=== PATIENT | female | born 1990 | race Caucasian/White ===

== ENCOUNTER 2020-03-07 12:04 | Emergency (ER) | payer OTHER ==
[2020-03-07 12:11] VITALS: BP 159/104; PULSE 72; TEMP 98.9; BMI 32.1
--- NOTE | 2020-03-07 12:11 | PDOC ---
Rapid Medical Evaluation Chief Complaint: Blood Pressure Problem Time Seen by Provider: 03/07/20 12:09 Medical Evaluation: 03/07/20 12:09 I have performed a brief in person evaluation of this patient. CC: "My blood Pressure is high." +Chest tightness x1 day PE: No focal findings Orders: cardiac w/u Patient will proceed to ED for further evaluation. Discharge Disposition - Diagnosis Chest tightness - Referrals - Patient Instructions - Post Discharge Activity
[2020-03-07 12:55] LABS: BASO % 0.5 % (0-2.0); EOS % 2.6 % (0-4.5); HEMATOCRIT 40.4 % (32.4-45.2); HEMOGLOBIN 13.7 GM/dL (10.7-15.3); MCH 29.5 pg (25.7-33.7); MCHC 33.9 g/dl (32.0-36.0); MEAN CELL VOLUME 87.1 fl (80-96); MEAN PLT VOLUME 8.4 fl (7.5-11.1); MONO % 6.5 % (3.8-10.2); NEUT % 64.4 % (42.8-82.8); PLATELET COUNT 277 K/MM3 (134-434); RBC 4.64 M/mm3 (3.60-5.2); WHITE BLOOD COUNT 7.2 K/mm3 (4.0-10.0)
--- NOTE | 2020-03-07 12:57 | PDOC ---
History of Present Illness - History of Present Illness Initial Comments: 29 yo female with PMH of htn, brea, anxiety, gasric sleeve (2019). Pt presents with hypertension measured at home at 180/12. Pt says she ran out of her nifedipine (60mg) 4 days ago and started taking her mom's amlodipine (5mg) for the last 2 days. She has been unable to get a hold of her doctor for refills. Pt endorses brief left sided chest tightness that spontaneously resolved earlier today that she believes is related to anxiety. She denies fevers, chills, ward, blurry vision, sob, leg swelling, nvd, abd pain, dysuria, hematuria. She denies any family hx of heart disease. She has a hx of smoking for 5 years that was terminated 1 year ago. <Carrie Andrade - Last Filed: 03/07/20 13:29> <Dimple Stubbs - Last Filed: 03/07/20 13:39> - General Chief Complaint: Blood Pressure Problem Stated Complaint: HYPERTENSION Time Seen by Provider: 03/07/20 12:09 Past History - Medical History Asthma: Yes (sleep apnea) CVA: No COPD: No HTN: Yes - Surgical History Gastric Stapling: Yes (sleeve) - Reproductive History Is Patient Now?: No - Psycho-Social/Smoking History Smoking History: Never smoked Have you smoked in the past 12 months: No Information on smoking cessation initiated: No - Substance Abuse Hx (Audit-C & DAST Scrn) How often the patient has a drink containing alcohol: 2-4 times / month Number of drinks the patient has on a typical day: 3 or 4 How often the patient has six or more drinks on one occasion: Never Score: In Men: 4 or > Positive; In Women: 3 or > Positive: 3 Screen Result (Pos requires Nsg. Audit-10AR): Positive In the last yr the pt used illegal drug/Rx for NonMed reason: No Score: Yes response is considered Positive: 0 Screen Result (Positive result requires Nsg. DAST-10): Negative <Carrie Andrade - Last Filed: 03/07/20 13:29> <Dimple Stubbs - Last Filed: 03/07/20 13:39> - Medical History Allergies/Adverse Reactions: Allergies Allergy/AdvReac Type Severity Reaction Status Date / Time No Known Allergies Allergy Unverified 03/07/20 12:11 Home Medications: Ambulatory Orders Nifedipine ER [Procardia XL -] 60 mg PO DAILY #14 tab.er.24 03/07/20 Review of Systems - Review of Systems Able to Perform ROS?: Yes Constitutional: No: Chills, Fever HEENTM: No: Eye Pain, Recent change in vision, Double Vision Respiratory: No: Cough, Shortness of Breath Cardiac (ROS): Yes: Chest Tightness. No: Edema, Irregular Heart Rate, Lightheadedness, Palpitations, Syncope ABD/GI: No: Constipated, Diarrhea, Nausea, Vomiting : No: Burning, Dysuria Musculoskeletal: No: Back Pain, Joint Pain, Muscle Weakness Integumentary: No: Dryness, Erythema, Lesions Neurological: No: Headache, Numbness, Tingling Psychiatric: Yes: Anxiety. No: Depression, Mood Swings Endocrine: No: Intolerance to Cold, Intolerance to Heat <Zeftawi,Bilal - Last Filed: 03/07/20 13:29> *Physical Exam - Vital Signs Last Vital Signs Temp Pulse Resp BP Pulse Ox 98.9 F 72 17 159/104 H 100 03/07/20 12:07 03/07/20 12:07 03/07/20 12:07 03/07/20 12:07 03/07/20 12:07 - Physical Exam General Appearance: Yes: Appropriately Dressed. No: Apparent Distress HEENT: positive: EOMI, REYNA, Normal ENT Inspection, Normal Voice, Other (no papilledema, cotton wool spots, exudate) Neck: negative: Tender, Rigid Respiratory/Chest: positive: Lungs Clear, Normal Breath Sounds. negative: Chest Tender, Respiratory Distress Cardiovascular: positive: Regular Rhythm, Regular Rate, S1, S2. negative: Edema, JVD Gastrointestinal/Abdominal: positive: Flat, Soft. negative: Tender Musculoskeletal: positive: Normal Inspection. negative: CVA Tenderness Extremity: positive: Normal Capillary Refill, Normal Inspection, Normal Range of Motion Integumentary: positive: Normal Color, Dry, Warm Neurologic: positive: Fully Oriented, Alert, Normal Mood/Affect <Zeftawi,Bilal - Last Filed: 03/07/20 13:29> - Vital Signs Last Vital Signs Temp Pulse Resp BP Pulse Ox 98.9 F 72 17 159/104 H 100 03/07/20 12:07 03/07/20 12:07 03/07/20 12:07 03/07/20 12:07 03/07/20 12:07 <Dimple Stubbs - Last Filed: 03/07/20 13:39> ED Treatment Course - LABORATORY CBC & Chemistry Diagram: 03/07/20 12:40 03/07/20 12:40 <Carrie Andrade - Last Filed: 03/07/20 13:29> - LABORATORY CBC & Chemistry Diagram: 03/07/20 12:40 03/07/20 12:40 - ADDITIONAL ORDERS Additional order review: Laboratory Results 03/07/20 12:40 Sodium 139 Potassium 3.5 Chloride 104 Carbon Dioxide 28 Anion Gap 7 L BUN 14.9 Creatinine 0.8 Est GFR (CKD-EPI)AfAm 117.10 Est GFR (CKD-EPI)NonAf 101.04 Random Glucose 72 L Calcium 9.4 Total Bilirubin 0.8 AST 26 ALT 43 Alkaline Phosphatase 86 Total Protein 7.6 Albumin 3.8 03/07/20 12:40 RBC 4.64 MCV 87.1 MCHC 33.9 RDW 12.0 MPV 8.4 Neutrophils % 64.4 Lymphocytes % 26.0 Monocytes % 6.5 Eosinophils % 2.6 Basophils % 0.5 <Dimple Stubbs - Last Filed: 03/07/20 13:39> Medical Decision Making - Medical Decision Making 29 yo female with PMH of htn, brea, anxiety, gasric sleeve (2019). Pt presents with hypertension (180/112) and chest tightness Heart score = 1 Labs: CBC, CMP, Trop EKG: normal sinus rhythm, normal intervals, normal axis. no st changes. no t waves inversions Confirmed with [facility] pharmacy for home med of nifedipine 60mg [facility]. Pt is currently asymptomatic <Carrie Andrade - Last Filed: 03/07/20 13:29> Discharge - Discharge Information Problems reviewed: Yes - Admission No <Carrie Andrade - Last Filed: 03/07/20 13:29> <Dimple Stubbs - Last Filed: 03/07/20 13:39> - Discharge Information Clinical Impression/Diagnosis: Chest tightness Condition: Stable Disposition: HOME - Additional Discharge Information Prescriptions: Nifedipine ER [Procardia XL -] 60 mg PO DAILY #14 tab.er.24 - Follow up/Referral Referrals: Lj Moy MD [Staff Physician] - Ayaz Vidal MD [Staff Physician] - - Patient Discharge Instructions Patient Printed Discharge Instructions: DI for High Blood Pressure Additional Instructions: paramedic supervisor [facility] from [facility] for nifedipine 60. Follow up with your primary care or seek new primary care with better accessibility within the next 5 days. Return to the ED if your condition worsens and/or you experience headaches, dizziness, lightheadedness, blurry vision, double vision, chest pain, shortness of breath, nausea, vomiting, abdominal pain, bloody urine. You must establish a reliable primary care doctor - we have provided you with a referral to be seen by our clinic system promptly. Do not miss this appointment. You will need to have another prescription written by a primary care doctor to refill your medication.
--- OUTSIDE RECORDS SUMMARY | 2020-03-07 13:07 | XMS ---
:1990 Author Organization [facility] Support Name Relationship Address Phone SE Unavailable Unavailable Unavailable AIDA MELENDEZ MOTHER [address] [facility] [facility] [address] [place] [address] Re-disclosure Warning The records that you are about to access may contain information from federally- assisted alcohol or drug abuse programs. If such information is present, then the following federally mandated warning applies: This information has been disclosed to you from records protected by federal confidentiality rules (42 CFR part 2). The federal rules prohibit you from making any further disclosure of this information unless further disclosure is expressly permitted by the written consent of the person to whom it pertains or as otherwise permitted by 42 CFR part 2. A general authorization for the release of medical or other information is NOT sufficient for this purpose. The Federal rules restrict any use of the information to criminally investigate or prosecute any alcohol or drug abuse patient.The records that you are about to access may contain highly sensitive health information, the redisclosure of which is protected by Article 27-F of the [facility] Public Health law. If you continue you may haveaccess to information: Regarding HIV / AIDS; Provided by facilities licensed or operated by the [facility] Office of Mental Health; or Provided by the [facility] Office for People With Developmental Disabilities. If such information is present, then the following [facility] mandated warning applies: This information has been disclosed to you from confidential records which are protected by state law. State law prohibits you from making any further disclosure of this information without the specific written consent of the person to whom it pertains, or as otherwise permitted by law. Any unauthorized further disclosure in violation of state law may result in a fine or intermediate sentence or both. A general authorization for the release of medical or other information is NOT sufficient authorization for further disclosure. Insurance Providers Payer name Policy type Policy ID Covered Covered green party's Policy P mariah / Coverage green party ID relationship to [employer] ormation type [employer] [id number] [facility] PL[facility]
[2020-03-07 13:29] LABS: CHLORIDE 104 mmol/L (98-107); POTASSIUM 3.5 mmol/L (3.5-5.1); SODIUM 139 mmol/L (136-145)
[2020-03-07 13:31] LABS: ALBUMIN 3.8 g/dl (3.4-5.0); ANION GAP 7 MMOL/L (8-16); BLOOD UREA NITROGEN 14.9 mg/dL (7-18); CALCIUM 9.4 mg/dL (8.5-10.1); CO2 28 mmol/L (21-32); GLUCOSE,RANDOM 72 mg/dL (74-106)
[2020-03-07 13:34] LABS: SGOT/AST 26 U/L (15-37); SGPT/ALT 43 U/L (13-61)
[2020-03-07 13:35] LABS: CREATININE 0.8 mg/dL (0.55-1.3)
--- NOTE | 2020-03-07 13:35 | PDOC ---
Documentation entered by Ac Diaz SCRIBE, acting as scribe for Leti Sumner MD. Leti Sumner MD: This documentation has been prepared by the cruzibe, Ac Diaz SCRIBE, under my direction and personally reviewed by me in its entirety. I confirm that the documentation accurately reflects all work, treatment, procedures, and medical decision making performed by me. Attending Attestation - Resident Resident Name: Carrie Andrade - ED Attending Attestation I have performed the following: I have examined & evaluated the patient, The case was reviewed & discussed with the resident, I agree w/resident's findings & plan, Exceptions are as noted - HPI HPI: 03/07/20 13:22 The patient is a 29 year old female with a significant past medical history of HTN, NAVID, and anxiety who presents to the emergency department for evaluation of high blood pressure (180/120) at home today. The patient reports she has not taken her 60 mg of nifedipine in four days because she ran out of her medic ation, so she took 5mg of her moms amlodipine for the past two days. She endorses left sided chest tightness today that has resolved and lasted only a few seconds. Non-exertional, non-radiating and no other associated symptoms. The patient denies chest/abdominal/back pain, cough, and shortness of breath. Denies fever, chills, nausea, vomiting, and/or any GI symptoms. Denies any symptoms. Denies any other symptoms. Allergies: NKA Social Hx: The patient reports smoking cigarettes and quit one year ago. Surgical Hx: gastric sleeve 2019 - Physicial Exam PE: 03/07/20 13:31 General: well appearing Chest: CTAB, good air entry, no wheezes rales or rhonchi CVS: + s1 s2, RRR - Medical Decision Making 03/07/20 13:32 29 yo F with elevated BP and episode of chest pressure that began when she saw the BP reading and resolved after 1 second, doubt ACS and episode of chest pain atypical and resolved without intervention. More likely chest pain 2/2 anxiety (pt attributes her symptoms to anxiety). Plan: -labs -if labs unremarkable d/c home with return precautions, patient states she will call her PMD to schedule f/u and for refill of her medications This clinical encounter is taking place during a federal and state health care emergency attributable to the novel [place] Virus pandemic. The [employer] of the Department of Health and Human Services has declared, pursuant to the Public Health Service Act 319F-3 (42 U.S.C. 247d-6d), that a covered persons activities related to medical countermeasures against COVID-19 will be immune from liability under Federal and State law. Heart Score/ECG Review - ECG Impressions Comment:: 03/07/20 13:34 sinus, rate 69, normal intervals, no ischemic changes Discharge - Discharge Information Problems reviewed: Yes Clinical Impression/Diagnosis: Chest tightness Condition: Stable Disposition: HOME - Additional Discharge Information Prescriptions: Nifedipine ER [Procardia XL -] 60 mg PO DAILY #14 tab.er.24 - Follow up/Referral - Patient Discharge Instructions Additional Instructions: fireworks assembly supervisor [facility]if[facility]ine 60. Follow up with your primary care or seek new primary care with better accessibility within the next 5 days. Return to the ED if your condition worsens and/or you experience headaches, dizziness, lightheadedness, blurry vision, double vision, chest pain, shortness of breath, nausea, vomiting, abdominal pain, bloody urine. - Post Discharge Activity
[2020-03-07 13:36] LABS: BILIRUBIN,TOTAL 0.8 mg/dL (0.2-1); TOT PROT 7.6 g/dl (6.4-8.2)
[2020-03-07 13:37] LABS: ALK PHOS 86 U/L (45-117)
--- NOTE | 2020-03-08 10:37 | EKG ---
Test Reason : Blood Pressure : / mmHG Vent. Rate : 069 BPM Atrial Rate : 069 BPM P-R Int : 184 ms QRS Dur : 090 ms QT Int : 382 ms P-R-T Axes : 023 037 011 degrees QTc Int : 409 ms NORMAL SINUS RHYTHM NORMAL ECG NO PREVIOUS ECGS AVAILABLE Confirmed by MD OSMAN, JOHANNY ([id number]) on 03/08/2020 10:37:05 AM Referred By: Confirmed By:JOHANNY BREWER MD
== END 2020-03-07 13:51 | disposition home or self-care (01) ==
LOC: JER 12:04
DX: R07.89 Other chest pain (principal)
CPT/HCPCS: 36415; 80053; 84484; 84702; 85025; 93005; 93010; 99285-25

== ENCOUNTER 2020-04-07 01:59 | Emergency (ER) | payer OTHER ==
[2020-04-07 02:04] VITALS: BP 118/85; PULSE 96; TEMP 97.3; BMI 32.1
[2020-04-07] MEDS ORDERED: ALBUTEROL SO4 HFA INHALER IH ONE ×2 (02:33→03:14)
[2020-04-07] MEDS ORDERED: AZITHROMYCIN 500 MG TABLET PO ONE (02:39)
[2020-04-07] MEDS ORDERED: DEXAMETHASONE 4 MG TABLET (FP) PO ONE (02:45)
[2020-04-07] MEDS ORDERED: AZITHROMYCIN 250 MG TABLET ONE ×2 (03:14→03:15)
[2020-04-07] MEDS ORDERED: DEXAMETHASONE 4 MG TABLET (FP) ONE (03:14)
== END 2020-04-07 04:48 | disposition home or self-care (01) ==
LOC: JER 01:59
PROC: 3E0F7GC Introduction of Other Therapeutic Substance into Respiratory Tract, Via Natural or Artificial Opening (ICD-10-PCS; principal; 2020-04-07)
DX: J18.9 Pneumonia, unspecified organism (principal)
CPT/HCPCS: 71046-TC-FY; 99284-25; C9803; U0003

== ENCOUNTER 2021-07-04 02:33 | Emergency (ER) | payer OTHER ==
[2021-07-04] MEDS ORDERED: DEXAMETHASONE SOD PHOSPHATE 10 MG/1 ML VIAL IVPUSH ONE (02:55)
[2021-07-04] MEDS ORDERED: DEXAMETHASONE SOD PHOSPHATE 10 MG/1 ML VIAL ONE (03:13)
[2021-07-04] MEDS: ALBUTEROL SO4 2.5/IPRATROPIUM 0.5 INH SOL 3 ML VIAL.NEB. NEB SCH ×5 (03:19→04:09)
[2021-07-04 03:25] LABS: BASO % 0.8 % (0-2.0); EOS % 4.5 % (0-4.5); HEMATOCRIT 40.3 % (32.4-45.2); HEMOGLOBIN 13.9 GM/dL (10.7-15.3); LYMPH % 46.1 % (8-40); MCH 29.2 pg (25.7-33.7); MCHC 34.5 g/dl (32.0-36.0); MEAN CELL VOLUME 84.5 fl (80-96); MEAN PLT VOLUME 8.1 fl (7.5-11.1); MONO % 6.7 % (3.8-10.2); NEUT % 41.9 % (42.8-82.8); PLATELET COUNT 231 10^3/uL (134-434); RBC 4.77 M/mm3 (3.60-5.2); RDW 12.5 % (11.6-15.6); WHITE BLOOD COUNT 6.8 K/mm3 (4.0-10.0)
[2021-07-04 03:34] VITALS: BMI 32.8
[2021-07-04 03:45] LABS: CALCIUM 9.4 mg/dL (8.5-10.1)
[2021-07-04 03:46] LABS: ALBUMIN 4.1 g/dl (3.4-5.0); BLOOD UREA NITROGEN 10.7 mg/dL (7-18)
[2021-07-04 03:49] LABS: CREATININE 0.9 mg/dL (0.55-1.3)
[2021-07-04 03:50] LABS: BILIRUBIN,TOTAL 0.3 mg/dL (0.2-1)
[2021-07-04 04:09] VITALS: TEMP 97.6
[2021-07-04 05:54] VITALS: BP 116/82; PULSE 82
== END 2021-07-04 05:49 | disposition home or self-care (01) ==
LOC: JER 02:33
PROC: 3E033GC Introduction of Other Therapeutic Substance into Peripheral Vein, Percutaneous Approach (ICD-10-PCS; principal; 2021-07-04)
DX: J45.21 Mild intermittent asthma with (acute) exacerbation (principal); R07.9 Chest pain, unspecified
CPT/HCPCS: 36415; 71045-TC-FY; 80053; 84484; 84703; 85025; 85379; 93005; 93010; 99285-25; J1100

== ENCOUNTER 2021-07-14 05:49 | Emergency (ER) | payer OTHER ==
[2021-07-14 05:58] VITALS: BP 141/84; PULSE 77; TEMP 97.4; BMI 33.0
[2021-07-14] MEDS ORDERED: KETOROLAC TROMETHAMINE 30 MG/1 ML VIAL IVPUSH ONE (07:27)
[2021-07-14] MEDS ORDERED: KETOROLAC TROMETHAMINE 30 MG/1 ML VIAL ONE (07:51)
[2021-07-14 08:34] LABS: BASO % 0.7 % (0-2.0); EOS % 3.9 % (0-4.5); HEMATOCRIT 36.3 % (32.4-45.2); HEMOGLOBIN 12.1 GM/dL (10.7-15.3); LYMPH % 39.8 % (8-40); MCH 28.7 pg (25.7-33.7); MCHC 33.5 g/dl (32.0-36.0); MEAN CELL VOLUME 85.6 fl (80-96); MEAN PLT VOLUME 8.7 fl (7.5-11.1); MONO % 7.5 % (3.8-10.2); NEUT % 48.1 % (42.8-82.8); PLATELET COUNT 225 10^3/uL (134-434); RBC 4.24 M/mm3 (3.60-5.2); RDW 12.8 % (11.6-15.6); WHITE BLOOD COUNT 5.2 K/mm3 (4.0-10.0)
[2021-07-14 08:39] LABS: CALCIUM 8.6 mg/dL (8.5-10.1)
[2021-07-14 08:40] LABS: ALBUMIN 3.4 g/dl (3.4-5.0); BLOOD UREA NITROGEN 13.7 mg/dL (7-18); MAGNESIUM 2.3 mg/dL (1.8-2.4)
[2021-07-14 08:42] LABS: CREATININE 0.8 mg/dL (0.55-1.3)
[2021-07-14 08:45] LABS: BILIRUBIN,TOTAL 0.2 mg/dL (0.2-1); TOT PROT 6.7 g/dl (6.4-8.2)
[2021-07-14 11:14] LABS: INR 0.95 (0.83-1.09); PROTHROMBIN TIME (PATIENT) 10.9 SEC (9.7-13.0)
== END 2021-07-14 11:49 | disposition home or self-care (01) ==
LOC: JER 05:49
PROC: 3E0333Z Introduction of Anti-inflammatory into Peripheral Vein, Percutaneous Approach (ICD-10-PCS; principal; 2021-07-14)
DX: R07.89 Other chest pain (principal)
CPT/HCPCS: 36415; 71046-TC-FY; 76705-TC; 80053; 83735; 84484; 84703; 85025; 85379; 85610; 93005; 93010; 96374; 99285-25